=== PATIENT | female | born 1970 ===

== ENCOUNTER 2023-05-27 10:53 | Outpatient (REF) | payer BC, SELFPAY ==
--- NOTE | 2023-05-27 10:13 | PAPFT_PTH ---
PATIENT: Hilda Mata LOC: [facility] U#:[id number] AGE/SX: 53/F ROOM: RE05/27/[address]: Daily Dowell MD : 1970 BED: DIS: 05/27/2023 SPEC #: [id number] RECD: 05/27/23 13:05 STATUS: RENEE RENettie #: [id number] JUSTINA: 05/27/23 10:[address]: Daily Dowell [facility]PT[facility] Cytology RECD BY: Jillian León ENTERED: 05/27/23 13:06 SP TYPE: PAPFT OT DR: Unknown,Unknown Tissues: 1 - CX/ENDOCX FOR PAP SMEARS Procedures: PAP THIN PREP/[facility] Screening HPV DNA PROBE Comments: [id number]
== END 2023-05-27 10:54 | disposition home or self-care (01) ==
LOC: LBN 10:53
PROVIDERS: Visit Provider Obstetrics & Gynecology
DX: Z12.4 Encounter for screening for malignant neoplasm of cervix (principal)
CPT/HCPCS: 88142; 87624

== ENCOUNTER 2023-06-14 15:44 | Outpatient (REF) | payer BC, SELFPAY ==
--- NOTE | 2023-06-14 15:15 | ENDOMET_PTH ---
PATIENT: Hilda Mata LOC: [facility] U#:[id number] AGE/SX: 53/F ROOM: RE06/14/[address]: Daily Dowell MD : 1970 BED: DIS: 06/14/2023 SPEC #: [id number] RECD: 06/14/23 17:22 STATUS: RENEE QUAN #: [id number] JUSTINA: 06/14/23 15:[address]: Daily Dowell DEPT: Surgical Specimen RECD BY: Jillian León ENTERED: 06/14/23 17:23 SP TYPE: Endomet OTHR DR: Michelle Juares Tissues: 1 - ENDOMETRIUM BX/JULIO C Procedures: GROSS AND MICRO LEVEL 4 Comments: [id number]
== END 2023-06-14 15:45 | disposition home or self-care (01) ==
LOC: LBN 15:44
PROVIDERS: PCP Internal Medicine; Visit Provider Obstetrics & Gynecology
DX: N95.0 Postmenopausal bleeding (principal); N85.8 Other specified noninflammatory disorders of uterus
CPT/HCPCS: 88305